=== PATIENT | female | born 1965 | race Caucasian/White ===

== ENCOUNTER 2019-09-21 05:35 | Outpatient (RCR) | payer MEDICARE, MEDICAID, SELFPAY | END 2019-10-11 00:01 | LOC: LAB 05:35 | PROVIDERS: Family Provider Family Medicine; Visit Provider Family Medicine | DX: I10 Essential (primary) hypertension (principal) | CPT/HCPCS: 36415; 80048; 85025 ==

== ENCOUNTER 2019-10-31 09:20 | Outpatient (RCR) | payer MEDICARE, MEDICAID, SELFPAY ==
[2019-10-31 10:23] LABS: Alanine Aminotransferase 20 U/L (0-33); Albumin Level 3.9 g/dL (3.5-5.2); Alkaline Phosphatase 64 IU/L (35-105); Aspartate Amino Transferase 18 U/L (0-32); Globulin 2.9 g/dL (1.3-4.6); Total Bilirubin 0.2 mg/dL (0.15-1.2); Total Protein 6.8 g/dL (6.6-8.7); Valproic Acid Level 72.3 mcg/mL (50-100)
== END 2019-11-11 23:59 | disposition home or self-care (01) ==
LOC: LAB 09:20
PROVIDERS: Family Provider Family Medicine; Visit Provider Family Medicine
DX: J44.9 Chronic obstructive pulmonary disease, unspecified (principal); F20.0 Paranoid schizophrenia
CPT/HCPCS: 80076; 80164

== ENCOUNTER → 2020-11-13 11:12 | Outpatient (BNVA) | payer MEDICARE, MEDICAID, SELFPAY | PROVIDERS: Family Provider Family Medicine; PCP Family Medicine; Referring Provider Family Medicine; Visit Provider Orthopaedic Surgery | DX: M70.62 Trochanteric bursitis, left hip (principal); M25.552 Pain in left hip | CPT/HCPCS: 73502 ==

== ENCOUNTER 2021-05-11 13:10 | Outpatient (CLI) | payer MEDICARE, MEDICAID, SELFPAY ==
[2021-05-11 15:13] LABS: Basophils # 0.1 10^3/uL (0.0-0.1); Basophils % 0.7 %; Eosinophils # 0.2 10^3/uL (0.0-0.8); Eosinophils % 2.1 %; Hematocrit 45.5 % (37.0-47.0); Hemoglobin 15.4 g/dL (11.5-15.3); Lymphocytes # 3.2 10^3/uL (0.8-4.8); Lymphocytes % 30.9 %; Mean Corpuscular HGB Conc 33.8 g/dL (30.0-36.0); Mean Corpuscular Hemoglobin 30.7 pg (28.0-34.0); Mean Corpuscular Volume 90.8 fL (81-99); Mean Platelet Volume 10.2 fL (7.4-10.4); Monocytes # 0.8 10^3/uL (0.2-0.9); Neutrophils % 57.5 %; Nucleated Red Blood Cells % 0 %; Platelet Count 293 10^3/cmm (130-400); Red Blood Count 5.01 10^6/uL (4.1-5.3); Red Cell Distribution Width 11.6 % (12.1-15.1); White Blood Count 10.2 10^3/uL (4.0-10.0)
[2021-05-11 15:23] LABS: Alanine Aminotransferase 44 U/L (0-33); Albumin Level 4.5 g/dL (3.5-5.2); Alkaline Phosphatase 83 IU/L (35-105); Aspartate Amino Transferase 29 U/L (0-32); Blood Urea Nitrogen 2 mg/dL (6-20); Calcium 9.5 mg/dL (8.5-10.5); Carbon Dioxide 25 mmol/L (22-29); Chloride 92 mmol/L (98-107); Chol HDL Ratio 5.59 mg/dL (0.0-4.40); Cholesterol 207 mg/dL (0-200); Free T4 Free Thyroxine 1.03 ng/dL (0.82-1.77); Globulin 2.3 g/dL (1.3-4.6); Glomerular Filtration Rate 126.7 mL/min (90-130); Glucose 117 mg/dL (65-115); HDL Cholesterol 37 mg/dL (60-100); LDL Cholesterol Calculated 134 mg/dL (50-129); LDL HDL Ratio 3.62 RATIO (0.00-3.22); Osmolality Calculated 269 mOsm/kg (285-295); Sodium 131 mmol/L (136-145); Thyroid Stimulating Hormone 1.67 uIU/mL (0.27-4.20); Total Bilirubin 0.2 mg/dL (0.15-1.2); Total Protein 6.8 g/dL (6.6-8.7); Triglycerides 180 mg/dL (0-150)
== END 2021-05-11 13:11 | disposition home or self-care (01) ==
PROVIDERS: PCP Family Medicine; Visit Provider Family Medicine
DX: R19.7 Diarrhea, unspecified (principal)
CPT/HCPCS: 80053; 80061; 84439; 84443

== ENCOUNTER 2025-02-03 12:14 | Outpatient (CLI) | payer MEDICARE, MEDICAID, SELFPAY ==
--- NOTE | 2025-02-03 12:22 | PETR_ITS ---
PROCEDURE INFORMATION: Exam: PET/CT Skull Base to Mid-thigh Exam date and time: 02/03/2025 1:53 PM Age: 59 years old Clinical indication: Condition or disease; Primary cancer: Malignant neoplasm of upper lobe, right bronchus or lung. LABS AND CLINICAL REPORTS: Glucose: 108 mg/dl Treatment strategy for malignancy (PET staging): Initial Staging (PI) TECHNIQUE: Imaging protocol: Following at least four-hour fasting and following the injection of radiopharmaceutical, low dose CT images were obtained. Then, PET images were obtained. Attenuation corrected images were constructed using the CT scan. Fused images of PET and CT were reviewed. The standardized uptake values (SUV) reported below are maximum values within a region of interest, expressed in gm/ml. Exam includes orbital meatal line to mid-thigh. SUV normalization method: BodyWeight Radiopharmaceutical: 10.96 mCi F-18 FDG (Fluorodeoxyglucose), IV. Time of imaging post radiopharmaceutical administration: 45 minutes Injection site: left hand COMPARISON: CR XR hip LT 2-3V wo/w pel* [id number] 11/13/2020 11:18 AM FINDINGS: Brain: Visualized brain has normal physiologic uptake. Salivary glands: Bilateral posteroinferior subcentimeter parotid/periparotid nodules with suggested reniform morphology showing SUV max 8.5 on the right on axial image 26 and SUV max 9.5 on the left on axial image 23. Pharynx: No abnormal uptake. Larynx: No abnormal uptake. Lungs, pleura and trachea: Upper lung predominant emphysematous change. Dependent atelectasis. Posterior right upper lobe mass measures 5.9 x 4.8 cm on axial image 80 and shows mildly irregular margins, central photopenia in keeping with necrosis, and peripheral FDG uptake with SUV max 15.3 at the anterior aspect. Heart: Normal physiologic uptake. Coronary arteries: Moderate coronary artery calcification. Mediastinal space: No abnormal uptake. Diaphragm: Small hiatal hernia. Liver: No abnormal uptake. Gallbladder and biliary ducts: No abnormal uptake. Pancreas: No abnormal uptake. Spleen: No abnormal uptake. Adrenal glands: No abnormal uptake. Kidneys and ureters: Normal physiologic uptake. Stomach and bowel: No abnormal uptake. Reproductive: Nonspecific ugvo-ty-aijziphd FDG uptake at the lower pelvis centered on the periurethral/vaginal region with SUV max 4.8. Vasculature: No abnormal uptake. Mild systemic atherosclerotic calcification without aortic aneurysm. Lymph nodes: No abnormal uptake. No lymphadenopathy in the head, neck, chest, abdomen, pelvis, and extremities. Skeleton: Degenerative change along the spine. Soft tissues: No suspicious abnormal uptake in the visualized head, neck, chest, abdomen, pelvis, and extremities. Moderate fat containing midline ventral upper abdominal wall hernia. METRICS: Mediastinal blood pool: SUV mean 2.4 Liver uptake: SUV mean 2.7 PET/PET skull to thigh INIT [id number] IMPRESSION: 1. FDG avid 5.9 cm posterior right upper lobe mass with central necrosis. 2. Bilateral posteroinferior subcentimeter parotid/periparotid nodules may represent reactive lymph nodes versus neoplasm. 3. Nonspecific mqjv-ml-havrjwiy FDG uptake in the lower pelvis entered on the periurethral/vaginal region may be inflammatory, neoplasm not entirely excluded. 4. Additional chronic and incidental findings as above.
== END 2025-02-03 12:15 | disposition home or self-care (01) ==
PROVIDERS: PCP Family Medicine; Visit Provider Family Medicine
DX: C34.11 Malignant neoplasm of upper lobe, right bronchus or lung (principal); R93.89 Abnormal findings on diagnostic imaging of other specified body structures; J43.9 Emphysema, unspecified; J98.11 Atelectasis; I25.10 Atherosclerotic heart disease of native coronary artery without angina pectoris; K44.9 Diaphragmatic hernia without obstruction or gangrene; I70.90 Unspecified atherosclerosis; M47.9 Spondylosis, unspecified; K43.9 Ventral hernia without obstruction or gangrene
CPT/HCPCS: 78815; A9552

== ENCOUNTER 2025-05-04 09:12 | Oncology outpatient (recurring) (ONCR) | payer MEDICARE, SELFPAY ==
[2025-05-04 10:35] LABS: Hematocrit 40.8 % (36-47); Hemoglobin 13.10 g/dL (11.27-16.99); Mean Corpuscular HGB Conc 32.1 g/dL (30-55); Mean Corpuscular Hemoglobin 27.2 pg (27-33); Mean Corpuscular Volume 84.8 fl (85-98); Nucleated Red Blood Cells % 0 %; Platelet Count 345 10^3/cmm (157-399); Red Blood Count 4.81 10^6/uL (3.85-5.65); White Blood Count 14.23 10^3/uL (3.29-11.43)
[2025-05-04 10:51] LABS: Alanine Aminotransferase 6 U/L (0-33); Albumin Level 3.8 g/dL (3.5-5.2); Alkaline Phosphatase 90 U/L (35-105); Anion Gap 17.7 (5-19); Aspartate Amino Transferase 7 U/L (0-32); Blood Urea Nitrogen 5 mg/dL (8-23); Calcium 9.5 mg/dL (8.5-10.5); Carbon Dioxide 23 mmol/L (22-29); Chloride 100 mmol/L (98-107); Creatinine Clr Calc Pharmacy 137.0340; Globulin 3.3 g/dL (1.3-4.6); Glucose 222 mg/dL (65-115); Osmolality Calculated 288 mOsm/kg (285-295); Potassium 3.7 mmol/L (3.5-5.1); Sodium 137 mmol/L (136-145); Total Protein 7.1 g/dL (6.6-8.7)
[2025-05-04] MEDS: iohexol 350 mg/mL 500 mL Btl (per mL) IV (12:30)
--- NOTE | 2025-05-04 12:30 | CT_ITS ---
WS: [id number] CT NECK WITH CONTRAST HISTORY: non-small cell cancer TECHNIQUE: Contiguous 2 mm axial images are performed through the neck with intravenous contrast. Sagittal and coronal reformats are also submitted. All CT scans at [facility] use at least one of these dose optimization techniques: automated exposure control; mA and/or kV adjustment per patient size (includes targeted exams where dose is matched to clinical indication); or iterative reconstruction. CONTRAST: CONTRAST: Omnipaque 350; 100 mL IV. DLP: 242.82 mGy.cm COMPARISON: PET/CT 02/03/2025 Bilateral intensely enhancing well-circumscribed masses are noted within the tail of each parotid gland. The larger intensely enhancing mass on the LEFT measures 7 x 10 mm. RIGHT parotid moderately enhancing mass 5 x 7 mm. These findings correspond to the recent PET/CT findings. There is an additional intensely enhancing mass measuring 7 x 6 mm just inferior to the RIGHT parotid gland which also was positive on the PET/CT and is probably a lymph node. Small level 2 and level 3 lymph nodes. Small level 5 lymph nodes. Normal appearance of the tongue base. Normal appearance of the torus tubarius and the parapharyngeal fat. Normal epiglottis. Normal thyroid gland. Reidentified is a soft tissue mass in the RIGHT upper lung, posterior described on the recent PET/CT. Mass measures at least 5.6 x 4.8 cm and has increased in size since the PET/CT now extending closer to the mediastinum. RIGHT paratracheal lymph nodes have enlarged. 1 of these lymph nodes is vascular measuring 1.3 cm in diameter. Biapical paraseptal emphysematous changes. Visualized sinuses are clear. No bone destruction. Mastoid air cells are clear. Foraminal stenosis on the RIGHT at C5-6 and C6-7. CT/CT neck w con* [id number] IMPRESSION: 1. Bilateral enhancing masses in the parotid tails. Correspond to the masses s een on the recent PET/CT. There is an additional lymph node that is hypervascul ar on the RIGHT adjacent to the tail of the parotid gland. Parotid space masses have overlapping features between malignancy and benign tumors. These may be b enign or malignant tumors. Consider Warthin's tumor, benign mixed tumors or met astatic disease or primary pituitary neoplasms. Positive lymph node adjacent to the RIGHT parotid tail may be inflammatory or neoplastic. 2. Neoplastic lung mass described on the PET/CT in the RIGHT upper lobe is inc reasing in size. Mass extends towards the mediastinum and there is a hypervascu lar RIGHT paratracheal lymph node. Several RIGHT paratracheal lymph nodes have increased in size since the PET/CT of 02/03/2025.
== END 2025-05-11 23:59 | disposition home or self-care (01) ==
PROVIDERS: PCP Family Medicine; Visit Provider Internal Medicine
DX: C34.91 Malignant neoplasm of unspecified part of right bronchus or lung (principal); R93.89 Abnormal findings on diagnostic imaging of other specified body structures; R91.8 Other nonspecific abnormal finding of lung field; J43.8 Other emphysema; M48.02 Spinal stenosis, cervical region; F17.210 Nicotine dependence, cigarettes, uncomplicated
CPT/HCPCS: 36415; 70491; 80053; 83615; 85025; 99204

== ENCOUNTER 2025-05-14 20:38 | Emergency (ER) | payer MEDICARE, SELFPAY ==
--- OUTSIDE RECORDS SUMMARY | 2014-07-24 19:00 | XMS_ITS | Continuity of Care Document ---
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 No Information Carltonmelodie Aj. [address] [place] [address], [id number]. tel:[phone] Family History Family Member Type Diagnosis Age At Onset No Information Payers Payer name Insurance type Covered green party ID Authoriza tion(s) No Information Social History Type Description Quantity Date Captured Comments Sex Female Smoking Status No Information Chief Complaint And Reason For Visit No Information Reason For Referral Reason For Referral No Information History Of Present Illness Encounter Date Complaint History Of Prese nt Illness No Information Functional Status Date Functional Assessmen t No Information Instructions Date Instruction Additional Infor mation No Information Assessments Type Assessment Date No Information Patient Care Teams Name Effective Dates (start - stop) Status Members No Information
--- OUTSIDE RECORDS SUMMARY | 2025-04-21 05:00 | XMS_ITS | Continuity of Care Document ---
Author Organization [address] [place] [address] Address [address] [facility] [address] [place] [address] Phone Care Team Providers Care Livestock Handler Name Role Phone Juvenalfadumo Nitin SHARP Unavailable Unavailable Allergies, Adverse Reactions, Alerts Substance Reaction Status Criticality amoxicillin Active No Information paliperidone Active No Information Medications Medication Instructions Dosage Effective Dates (start - stop) Status Comments Breztri Aerosphere 160 mcg-9mcg-4.8mcg/actuation HFA aerosol inhaler - Active famotidine 20 mg tablet - Ac tive escitalopram 5 mg tablet - A ctive solifenacin 10 mg tablet - A ctive clozapine 100 mg tablet - Ac tive ipratropium 0.5 mg-albuterol 3 mg (2.5 mg base)/3 mL nebulization soln - Active doxycycline hyclate 100 mg tablet - Active Symbicort 80 mcg-4.5 mcg/actuation HFA aerosol inhaler - Active budesonide-formoterol HFA 80 mcg-4.5 mcg/actuation aerosol inhaler - Active hydrocodone 5 mg-acetaminophen 325 mg tablet - Active olanzapine 5 mg tablet - Act erna rosuvastatin 10 mg tablet - Active cephalexin 500 mg capsule - Active fluphenazine decanoate 25 mg/mL injection solution - Active lamotrigine 25 mg tablet - A ctive olanzapine 10 mg disintegrating tablet - Active olanzapine 2.5 mg tablet - A ctive amlodipine 5 mg tablet - Act erna citalopram 20 mg tablet - Ac tive olanzapine 20 mg tablet - Ac tive olanzapine 15 mg tablet - Ac tive Ventolin HFA 90 mcg/actuation aerosol inhaler - Active olanzapine 10 mg tablet - Ac tive benztropine 0.5 mg tablet - Active divalproex 250 mg tablet,delayed release - Active divalproex 500 mg tablet,delayed release - Active fluticasone propionate 50 mcg/actuation nasal spray,suspension - Active divalproex ER 500 mg tablet,extended release 24 hr - Active Procedures Procedure Date Complete Denture-Maxillary Complete Denture-Mandibular Unspec Remvbl Prosth Proc, By Report Apr Unspec Remvbl Prosth Proc, By Report Apr Try In Bite Registration House/Extended Care Facility Call Denture Impression DEBRIDE NAIL 6 OR MORE 1ST NF CARE SF/LOW MDM 25 Compsve Oral Eval- New/Est Pat Complete Series Of Radiographic Images N COMPRE OPH EXAM EST PT 1/> Vision svcs frames purchases Lens spher bifoc plano 4.00d EYE EXAM NEW PATIENT Advance Directives Directive Yes / No Effective Date File Name No Information Encounters Encounter Description Practice Location Reason(s) For Visit Diagnoses Date Provider Providers Copied on Encounter [address] [place] [address], [address] [facility] [address], [place], [place], [id number], [place] tel:[phone] [place] [address] Complete loss of teeth, unspecified cause, unspecified classPresence of dental prosthetic device (complete) (partial) 5 WILEY Garrido. Referring Provider: Min Vidal. [address] [place] [address], [place], [place], [id number], tel:[phone] [place] [address] No Information 5 WILEY Mack. [address] [place] [address], [place], [place], [id number], tel:[phone] [place] [address] Complete loss of teeth, unspecified cause, unspecified class 5 WILEY Garrido. Referring Provider: Min Vidal. [address] [place] [address], [place], [place], [id number], [place] tel:[phone] [place] [address] Complete loss of teeth, unspecified cause, unspecified class 5 WILEY Garrido. Referring Provider: Min Vidal. [address] [place] [address], [place], [place], [id number], [place] tel:[phone] [place] [address] Encounter for dental examination and cleaning without abnormal findingsCompl ete loss of teeth, unspecified cause, unspecified class 4 WILEY Eubanks. Referring Provider: Min Vidal. [address] [place] [address] SF/LOW MDM [address] [place] [address], [place], [place], [id number], [place] tel:[phone] [place] [address] Tinea unguiumPeriph eral vascular disease, unspecified 4 WILEY Dukes. Referring Provider: Min Vidal. [address] [place] [address], [place], [place], [id number], [place] tel:[phone] [place] [address] Encounter for dental examination and cleaning without abnormal findings 4 Ableino Gee. , MD. Referring Provider: Min Vidal. [address] [place] [address], [address] [facility], [place], [place], [id number], tel:[phone] [facility] Decreased vision (chief complaint) Age-related nuclear cataract, bilateral 4 Angel Cherry. [address] [facility], [address], [place], [place], [id number], [place]. tel:[phone] [place] [address], [address] [address], [place], [place], [id number], [place] tel:[phone] [facility] Presbyopia 3 Angel Cherry. [address] [facility], [address], [place], [place], [id number], [place]. tel:[phone] [place] [address], [address] [facility] [address], [place], [place], [id number], tel:[phone] [place] [address] Decreased vision (chief complaint) Age-related nuclear cataract, bilateral 3 Angel Cherry. [address] [facility], [address], [place], [place], [id number], [place]. tel:[phone] Referring Provider: Min Vidal. [address] [place] [address], [address] [address], [place], [place], [id number], tel:[phone] [place] [address] No Information 3 Charly Sarah. [address], [place], [place], [id number], [place]. tel:[phone] Family History Family Member Type Diagnosis Age At Onset No Information Payers Payer name Insurance type Covered republican ID Jenniffer dunn(s) DDS Medicaid [facility] [id number] Social History Type Description Quantity Date Captured Comments Sex Female Smoking Status No Information Chief Complaint And Reason For Visit No Information Reason For Referral Reason For Referral No Information Plan Of Treatment Date Type Action Status Appointment Nisha Garcia BOOKED Appointment Nisha Garcia BOOKED Appointment [facility] Nisha BOOKED History Of Present Illness Encounter Date Complaint History Of Prese nt Illness Decreased vision The 58 year old patient presents for evaluation of Decreased vision in the right eye and left eye. It occurs all the time. It affects both near and far vision. The condition is mild. Patient denies: eye pain. Decreased vision The 58 year old patient presents for evaluation of Decreased vision in the right eye and left eye. It occurs all the time. It affects near vision. The condition is moderate. Patient denies: eye pain. Functional Status Date Functional Assessmen t No Information Instructions Date Instruction Additional Infor mation This is a chronic stable problem . Related to Peripheral vascular disease, unspecified All documented thick ened nails were debrided using a rotary tool and nail nipper. Related to Tinea unguium We will schedule a f ollow up appointment in 6-9 months for a dilated fundus exam. Related to Age-related nuclear cataract, bilateral Impression/Plan - Ca taracts are moderate and are affecting visual acuity; however, no treatment recommended at this time. We will monitor for progression. Related to Age-related nuclear cataract, bilateral Follow up - We will schedule a follow up appointment in 6-9 months for a dilated fundus exam. Related to Age-related nuclear cataract, bilateral [facility] order will be sent to insurance for review. We will schedule a follow up appointment in 6-9 months for a dilated fundus exam. Related to Age-related nuclear cataract, bilateral Follow up - At the [facility], glasses order will be sent to insurance for review. We will schedule a follow up appointment in 6-9 months for a dilated fundus exam. Related to Age-related nuclear cataract, bilateral Impression/Plan - Ca taracts are moderate and are affecting visual acuity; however, no treatment recommended at this time. We will monitor for progression. Related to Age-related nuclear cataract, bilateral Assessments Type Assessment Date No Information Patient Care Teams Name Effective Dates (start - stop) Status Members No Information
[2025-05-14 20:39] VITALS: BP 91/72; PULSE 98; RESP 18; TEMP 36.8; O2SAT 90; BMI 34.8
--- NOTE | 2025-05-14 20:42 | CTR_ITS ---
PROCEDURE INFORMATION: Exam: CT Head Without Contrast Exam date and time: 05/14/2025 8:41 PM Age: 60 years old Clinical indication: Stroke-like symptoms; Other: Seizure activity; RT upper extremity weakness; Additional info: Per EMS patient had convulsion like activity and PT C/O RT upper ext weakness. Last known well time of 1840 hours. History of non small cell lung cancer. TECHNIQUE: Imaging protocol: Computed tomography of the head without contrast. Radiation optimization: All CT scans at this facility use at least one of these dose optimization techniques: automated exposure control; mA and/or kV adjustment per patient size (includes targeted exams where dose is matched to clinical indication); or iterative reconstruction. Other technique: STROKE PROTOCOL was implemented. COMPARISON: CT neck w con* [id number] 05/04/2025 12:25 PM RADIATION DOSE METRICS: Total DLP (mGy-cm): 2194.98 FINDINGS: Brain: 1.6 x 1.5 x 1.5 cm mass within the superior left frontal lobe with associated local vasogenic edema (see for example series 18, image 63 and series 21, image 11). No intracranial hemorrhage. There is global parenchymal volume loss. Additional periventricular white matter hypoattenuation is nonspecific but most likely due to small vessel disease. No evidence of acute territorial infarct or cerebral edema. No midline shift. Cerebral ventricles: Prominent ventricles likely secondary to volume loss. Paranasal sinuses: Visualized paranasal sinuses are clear. Mastoid air cells: The mastoid air cells are clear. Bones: The calvarium is intact. Small calcified osteoma along the right lamina papyracea/medial orbital wall. Soft tissues: Unremarkable. CT/CT head thrombolytic [id number] IMPRESSION: 1. Left superior frontal 1.6 cm mass with associated local vasogenic edema, suspicious for and intracranial metastasis given history of lung cancer. Recommend further assessment with contrast enhanced MRI to assess for additional smaller lesions. 2. No findings to suggest acute ischemia. ASSESSMENT: ASPECTS ([place] Stroke Program Early CT Score) is 10.
--- NOTE | 2025-05-14 20:46 | W.ED.SEIZURE ---
HPI - Seizure General: Chief Complaint: Neuro Symptoms/Deficit Stated Complaint: stroke alert Time Seen by Provider: 05/14/25 20:43 History of Present Illness: HPI Narrative: 60-year-old female brought in via EMS with concerns for CVA. Patient was in a lockdown center for behavior when she had approximately 8 to 10-minute episode of seizure-like activity. After she came out of it she had some right arm weakness. Weakness is almost resolved prior to arrival via EMS. Patient has no seizure history. She is on a lockdown unit and does not have access to alcohol or drugs. Patient with no complaints upon arrival. NIH is 0. Associated symptoms: Deny chest pain, chills or fever(s) Related Data Home Medications ?Medication ?Instructions ?Recorded ?Confirmed donepezil 10 mg tablet 10 mg PO DAILY 11/13/20 11/13/20 tamsulosin 0.4 mg capsule 0.4 mg PO DAILY 11/13/20 11/13/20 acetaminophen 650 mg 650 mg PO Q12H 05/04/25 05/04/25 tablet,extended release aluminum-mag hydroxide-simethicone 10 ml PO QID PRN 05/04/25 05/04/25 200 mg-200 mg-20 mg/5 mL oral susp (Michell-Lanta) budesonide 160 mcg-glycopyr 9 2 inh inhalation BID 05/04/25 05/04/25 mcg-formot 4.8 mcg/actuation HFA inhaler (Breztri Aerosphere) clozapine 100 mg tablet mg PO 05/04/25 05/04/25 cyanocobalamin (vitamin B-12) 500 500 mcg PO DAILY 05/04/25 05/04/25 mcg lozenges escitalopram oxalate 10 mg tablet mg PO 05/04/25 05/04/25 famotidine 20 mg tablet mg PO 05/04/25 05/04/25 fluphenazine decanoate 25 mg/mL mg IM 05/04/25 05/04/25 injection solution fluticasone propionate 50 intranasal 05/04/25 05/04/25 mcg/actuation nasal spray,suspension naloxone 1 mg/mL injection syringe 1 mg IM Q2M PRN 05/04/25 05/04/25 solifenacin 10 mg tablet mg PO 05/04/25 05/04/25 Allergies Allergy/AdvReac Type Severity Reaction Status Date / Time amoxicillin Allergy Unknown unknown Verified 05/04/25 09:20 paliperidone (From Invega) Allergy Unknown unknown Verified 05/04/25 09:20 petrolatum,white (From A and Allergy Unknown Unknown Verified 05/04/25 09:20 D Barrier) Review of Systems Const: Denies: fever(s) or chills Card: Denies: chest pain or palpitations Resp: Denies: dyspnea or productive cough Neuro: Reports: seizure-like activity and other (Please see HPI) PFSH ED PFSH: Social History Smoking and tobacco/nicotine status: current some day tobacco/nicotine user (vaping and cigs) Alcohol intake: never Substance/Drug Use: never Current gender identity: Female Physical Exam Const: COMMON NORMALS: no acute distress and alert Neuro: COMMON NORMALS: moves all extremities, no focal motor deficits and no sensory deficits noted SENSORIUM/ORIENTATION: Yes alert SPEECH: speech normal OTHER: NIH 0 Psych: COMMON NORMALS: mental status grossly normal, Normal thought process present and cooperative THOUGHT PROCESS: Normal thought process present Course Vital Signs: Vital signs: Vital Signs Temperature 98.3 F 05/14/25 20:39 Pulse Rate 100 05/14/25 21:20 Respiratory Rate 18 05/14/25 21:20 Blood Pressure 91/51 05/14/25 21:20 Pulse Oximetry 90 05/14/25 21:20 Oxygen Delivery Me thod Room Air 05/14/25 20:39 MDM - Seizure MDM Narrative Medical decision making narrative: Patient's CT was ordered and reviewed. Patient has a 1.6 x 1.5 x 1.5 cm mass in the brain that is consistent with likely metastatic small cell lung cancer. Patient with new onset seizure and some vasogenic edema on CT. Patient was given dexamethasone Keppra and IV fluids in the ER. Patient [facility] be [facility] to [facility] following recommendations of neurology and hospitalist. Dr. Minor accepting. She will be transferred via EMS. She was stable upon transfer. Lab Data 05/14/25 21:46 05/14/25 21:46 Labs: Radiology Impressions Head CT 05/14/25 20:42 IMPRESSION: 1. Left superior frontal 1.6 cm mass with associated local vasogenic edema, suspicious for and intracranial metastasis given history of lung cancer. Recommend further assessment with contrast enhanced MRI to assess for additional smaller lesions. 2. No findings to suggest acute ischemia. ASSESSMENT: ASPECTS (Carly Stroke Program Early CT Score) is 10. ADDENDUM: 05/14/252109 COMMENT: THIS REPORT CONTAINS FINDINGS THAT MAY BE CRITICAL TO PATIENT CARE. The exam findings were verbally communicated by me to Dr. Deleon via telephone conference at 9:07 PM CDT on 05/14/2025. The findings were acknowledged and understood. Laboratory Results WBC 13.17 10^3/uL (3.29-11.43) H 05/14/25 21:46 RBC 4.77 10^6/uL (3.85-5.65) 05/14/25 21:46 Hgb 13.10 g/dL (11.27-16.99) 05/14/25 21:46 Hct 39.6 % (36-47) 05/14/25 21:46 MCV 83.0 fl (85-98) L 05/14/25 21:46 MCH 27.5 pg (27-33) 05/14/25 21:46 MCHC 33.1 g/dL (30-55) 05/14/25 21:46 RDW 13.6 % (12.1-15.1) 05/14/25 21:46 Plt Count 353 10^3/cmm (157-399) 05/14/25 21:46 MPV 9.2 fL (7.4-10.4) 05/14/25 21:46 Neut % (Auto) 72.6 % 05/14/25 21:46 Lymph % (Auto) 17.5 % 05/14/25 21:46 [place] % (Auto) 6.8 % 05/14/25 21:46 Eos % (Auto) 1.8 % 05/14/25 21:46 Baso % (Auto) 0.5 % 05/14/25 21:46 Neut # (Auto) 9.55 10^3/uL (1.8-7.7) H 05/14/25 21:46 Lymph # (Auto) 2.3 10^3/uL (0.8-4.8) 05/14/25 21:46 [place] # (Auto) 0.9 10^3/uL (0.2-0.9) 05/14/25 21:46 Eos # (Auto) 0.2 10^3/uL (0.0-0.8) 05/14/25 21:46 Baso # (Auto) 0.1 10^3/uL (0.0-0.1) 05/14/25 21:46 Nucleated RBC % (auto) 0 % 05/14/25 21:46 Nucleated RBCs # 0.0 /100WBC 05/14/25 21:46 PT 12.60 SECONDS (12.1-14.9) 05/14/25 21:46 INR 0.88 (0.8-1.2) 05/14/25 21:46 APTT 32.5 SECONDS (23.9-36.7) 05/14/25 21:46 Sodium 142 mmol/L (136-145) 05/14/25 21:46 Potassium 4.0 mmol/L (3.5-5.1) 05/14/25 21:46 Chloride 104 mmol/L (98-107) 05/14/25 21:46 Carbon Dioxide 26 mmol/L (22-29) 05/14/25 21:46 Anion Gap 16.0 (5-19) 05/14/25 21:46 BUN 6 mg/dL (8-23) L 05/14/25 21:46 Creatinine 0.5 mg/dL (0.5-0.9) 05/14/25 21:46 GFR Calculation 125.0 mL/min (90-130) 05/14/25 21:46 Glucose 142 mg/dL (65-115) H 05/14/25 21:46 POC Glucose 154 mg/dL (70-110) H 05/14/25 20:45 Calculated Osmolality 294 mOsm/kg (285-295) 05/14/25 21:46 Calcium 9.5 mg/dL (8.5-10.5) 05/14/25 21:46 Total Bilirubin 0.2 mg/dL (0.15-1.2) 05/14/25 21:46 AST 8 U/L (0-32) 05/14/25 21:46 ALT 9 U/L (0-33) 05/14/25 21:46 Alkaline Phosphatase 90 U/L (35-105) 05/14/25 21:46 Total Protein 6.7 g/dL (6.6-8.7) 05/14/25 21:46 Albumin 3.7 g/dL (3.5-5.2) 05/14/25 21:46 Globulin 3.0 g/dL (1.3-4.6) 05/14/25 21:46 All radiology interpretation(s) finalized by discharge Discharge Plan Discharge Patient Disposition: Xfer Short-Term Hosp 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
--- OUTSIDE RECORDS SUMMARY | 2025-05-14 20:59 | XMS_ITS | Clinical Summary ---
Author Organization [facility] Ezio Argueta do Address [address] [place] [address] EZIO HULL [facility] [place] [address] Care Team Providers Care Heating Equipment Repairer Name Role Phone Unavailable Primary Care Provider Unavailabl e Allergies Active Allergy Reactions Criticality Noted Date Comments Amoxicillin Unknown 04/05/2013 Medications venlafaxine SR 24 hour (EFFEXOR XR) 150 mg Oral capsule daily. 10/28/2012 Active vitamin E 600 unit Oral Cap daily at bedtime. 10/28/2012 Active vitamin E 1,000 unit Oral Cap daily before breakfast. 10/28/2012 Active 0mega-3 fatty acids-vitamin E (FISH OIL) 1,000 mg Oral Cap 1,000 mg daily. 10/28/2012 Active ranitidine (ZANTAC) 150 mg Oral tablet daily. 10/28/2012 Active LORazepam (ATIVAN) 0.5 mg Oral tablet 1 Tab 2 times daily as needed. 10/28/2012 Active fluphenazine (PROLIXIN) 10 mg Oral tablet Take 10 mg by mouth 2 times daily. Active PNV with Ca,No.73-Iron-FA (TRINATE) 28-1 mg Oral Tab Take by mouth. Active VESICARE 5 mg Tablet GIVE 1 TABLET BY MOUTH DAILY. 30 Tab 3 09/06/2013 Active divalproex delayed release (DEPAKOTE) 500 mg Tablet, Delayed Release (E.C.) Take 500 mg by mouth daily. Active SIMETHICONE ORAL Take by mouth 1 time daily as needed. Active OLANZapine (ZYPREXA ZYDIS) 10 mg Tablet, Rapid Dissolve Place 10 mg inside cheek daily at bedtime. Active ibuprofen (MOTRIN) 200 mg tablet Take 200 mg by mouth every 6 hours as needed. Active divalproex delayed release (DEPAKOTE) 500 mg Tablet, Delayed Release (E.C.) Take 1,000 mg by mouth daily at bedtime. Active OLANZapine (ZYPREXA ZYDIS) 20 mg Tablet, Rapid Dissolve Place 20 mg inside cheek daily. At 6 pm Active FLUPHENAZINE HCL (PROLIXIN ORAL) Take 7.5 mg by mouth. 3cc IM every 2 weeks Active benztropine (COGENTIN) 0.5 mg tablet Take 0.5 mg by mouth 2 times daily. Active Hospital, Clinic, or Other Facility Administered Medication Ordered Dose Route Frequency Start Date End Date Status paliperidone palmitate (INVEGA SUSTENNA) 234 mg/1.5 mL injection 234 mgIndications:Schizoaffecti ve disorder, chronic condition ([facility]) 234 mg IM EVERY MONTH 07/07/2013 Acti ve Active Problems Problem Noted Date Diagnosed Date Bursitis of left hip 01/01/2021 Cigarette dependence 03/21/2019 COPD (chronic obstructive pulmonary disease) 05/2018 Schizoaffective disorder, bipolar type Paranoid schizophrenia, subchronic condition 05/2018 Urinary frequency 10/28/2012 Mixed hyperlipidemia 08/04/2012 Allergic rhinitis, cause unspecified 10/28/2011 Schizoaffective disorder, chronic condition 10/12 Tobacco use disorder 09/02/2011 Encounters Date Type Department Care Team Description 04/26/2025 External Device Data [facility] ABSTRACTION Provider, Abstract 04/25/2025 External Device Data [facility] ABSTRACTION Provider, Abstract 03/02/2025 External Device Data [facility] ABSTRACTION Provider, Abstract 03/01/2025 External Device Data [facility] ABSTRACTION Provider, Abstract 03/01/2025 External Device Data [facility] ABSTRACTION Provider, Abstract 02/28/2025 External Device Data [facility] ABSTRACTION Provider, Abstract from Last 3 Months Immunizations Immunization Administration Dates Next Due Influenza Vaccine Split 3+ Yrs IM 07/13/2013 Social History Tobacco Use Types Packs/Day Years Used Date Smoking Tobacco: Every Day Cigarettes Smokeless Tobacco: Never Alcohol Use Standard Drinks/Week Comments No 0 (1 standard drink = 0.6 oz pur e alcohol) Comments Unknown Sex and Gender Information Value Date Recorded Sex Assigned at Not on file Legal Sex 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 Gender Identity Not on file Sexual Orientation Not on file Occupation Industry Job Start Date Job End Date Not on file Not on file Not on file Not on file Last Filed Vital Signs Vital Sign Reading Time Taken Comments Blood Pressure 116/68 05/21/2021 12:23 PM CDT Pulse 83 05/21/2021 12:23 PM CDT Temperature 36.7 C (98.1 F) 05/21/2021 12:23 PM CDT Respiratory Rate 21 05/21/2021 12:23 PM CDT Oxygen Saturation 95% 12/22/2013 9:54 AM CDT Inhaled Oxygen Concentration - - Weight 102.5 kg (226 lb) 05/21/2021 12:23 PM CDT Height 170.2 cm (5' 7 ) 05/21/2021 12:23 PM CDT Body Mass Index 35.4 05/21/2021 12:23 PM CDT Plan of Treatment Health Maintenance Due Date Last Done Comments HPV/Cotest (21-29) 1984 HPV/Cotest (30-65) 1993 DTAP/TDAP/TD VACCINES (1 - Tdap) 07/20/2002 07/19/20 02 FIT-DNA Q 3 years 2008 FIT/FOBT Q 1 year 2008 Flex Sig/CT Colonography Q 5 years 2008 ZOSTER VACCINE (1 of 2) 2013 BREAST CANCER SCREENING 01/27/2016 01/27/20 15, 01/26/2015, 04/25/2013 CERVICAL CANCER SCREENING 04/20/2016 PAP SMEAR 04/20/2016 04/20/2013 RSV VACCINE (60+ or ) (1 - Risk 60-74 years 1-dose series) 2023 INFLUENZA VACCINE (#1) 2025 07/01/2017, 2012 COLORECTAL SCREENING 02/20/2028 02/19/2018 Colorectal Cancer Screening 02/20/2028 Insurance MEDICAID [place] MED[place]ARE PART A AND B
--- OUTSIDE RECORDS SUMMARY | 2025-05-14 20:59 | XMS_ITS | Encounter Summary ---
Author Organization [facility] Address [address] [address] Care Team Providers Care Loom Fixer Supervisor Name Role Phone Min Vidal MD Primary Care Provider Encounter Details Date Type Department Care Team (Late st Contact Info) Description 02/07/2025 Orders Only [facility] - Primary Care [address] [place] [address] Mni Vidal MD [address] [place] [address] Social History Tobacco Use Types Packs/Day Years Used Date Smoking Tobacco: Never Smokeless Tobacco: Never Alcohol Use Standard Drinks/Week Comments Defer 0 (1 standard drink = 0.6 oz pur e alcohol) PHQ-2 Answer Date Recorded PHQ-2 Score 0 10/31/2024 Comments Unknown Sex and Gender Information Value Date Recorded Sex Assigned at Not on file Legal Sex Female 8:13 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 Gender Identity Not on file Sexual Orientation Not on file documented as of this encounter Plan of Treatment Not on file documented as of this encounter Procedures Procedure Name Priority Date/Time Associated Diagnosis Comments CT CHEST WO CONTRAST Routine 02/07/2025 3:38 PM CDT documented in this encounter Results * CT Chest withOUT contrast (02/07/2025 3:38 PM CDT) Anatomical Region Laterality Modality Chest Computed Tomogra phy Min Vidal MD IMG CT ORDERABLES Kathleen l Result documented in this encounter Visit Diagnoses Not on filedocumented in this encounter Additional Health Concerns Assessment Noted Time PHQ-9 Depression Total Score: 0 10/31/19 25 1:24 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 A fall risk assessment has been complete d for the patient 01/30/2025 6:11 AM CDT documented as of this encounter Care Teams Loom Fixer Supervisor Relationship Specialty Start Date End Date Min Vidal MD [address] [place] [address] PCP - General Family Medicine 09/09/22 documented as of this encounter
--- OUTSIDE RECORDS SUMMARY | 2025-05-14 20:59 | XMS_ITS | Clinical Summary ---
Author Organization [facility] Address [address] [place] [address] Care Team Providers Care In Home Baby Sitter Name Role Phone Min Vidal MD Primary Care Provider Allergies Active Allergy Reactions Criticality Noted Date Comments Amoxicillin Unknown 09/22/2022 Paliperidone Unknown 09/22/2022 Medications HYDROcodone-antoinette taminophen (NORCO) 5-325 mg per tabletIndicatio ns:Pain Take 1 tablet by mouth in the morning and 1 tablet in the evening. Max Daily Amount: 2 tablets. 60 tablet 07/07/2023 Active amLODIPine (NORVASC) 5 MG tablet 12/08/2023 Active eszopiclone (LUNESTA) 1 MG tablet 12/08/2023 Active fluPHENAZine decanoate (PROLIXIN) 25 mg/mL depo injection Inject into the shoulder, thigh, or buttocks every 14 (fourteen) days. Active naloxone 2 mg/2 mL syringe kit Inject as directed. Active budesonide-form oteroL (SYMBICORT) 80-4.5 mcg/actuation inhaler Inhale 2 puffs in the morning and 2 puffs in the evening. 01/05/2024 Active cloZAPine (CLOZARIL) 100 MG tablet Take 100 mg by mouth nightly. 01/05/2024 Active doxycycline (VIBRA-TABS) 100 MG tablet Take 100 mg by mouth in the morning and 100 mg in the evening. 01/05/2024 Active LORazepam (ATIVAN) 2 mg tablet Take 2 mg by mouth nightly as needed. 12/15/2023 Active cyanocobalamin, vitamin B12, 500 MCG tablet Take 500 mcg by mouth in the morning. Active guaifenesin (CALVIN-TUSSIN ORAL) Take by mouth. Active clonazePAM (KLONOPIN) 0.5 MG tablet Take 0.5 mg by mouth as needed in the morning and 0.5 mg as needed in the evening. Active nicotine (NICODERM CQ) 21 mg/[address] 1 patch on the skin in the morning. Active Active Problems Problem Noted Date Diagnosed Date Mass of upper lobe of right lung 02/02/2025 Chronic rhinitis 11/25/2024 Gastro-esophageal reflux disease without esophag itis 08/05/2024 Smoker 08/05/2024 Slow transit constipation 08/05/2024 Overactive bladder 02/05/2024 Schizoaffective disorder, bipolar type Assessment & Plan (01/11/2024 3:28 PM CDT): Continue current medications. Keep follow-up with Psychiatry. 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 Chronic pain syndrome 04/01/2023 Primary hypertension 03/10/2023 Panlobular emphysema 11/29/2022 Type 2 diabetes mellitus wit hout complication, without long-term current use of insulin 11/08/2022 Body mass index (BMI) of 36.0-36.9 in adult 10/13 Tubular adenoma of colon 03/03/2018 Resolved Problems Problem Noted Date Diagnosed Date Resolved Date Hypercholesterolemia 11/08/2022 024 Overview (11/08/2022): START CRESTOR 10 MG AT BEDTIME Tubulovillous adenoma of rectum 03/03/2018 08/05/2024 Encounters Date Type Department Care Team Description 03/17/2025 12:30 PM CDT Office Visit [facility] - Primary Care [address] [place] [address] Sofía Bone PA Encounter for Medicare annual wellness exam (Primary Dx) 03/16/2025 Travel from Last 3 Months Immunizations Immunization Administration Dates Next Due Hep B, unspecified 07/08/1999 Gabriella Sars-CoV-2 Vaccination 06/14/2021 Td (adult) (TDVAX) 07/19/2002 Tdap (BOOSTRIX, ADACEL) 02/20/2009 influenza, injectable, quadr ivalent, preservative free (AFLURIA/FLUARIX/FLULAVAL/FLUZONE) 08/04/2022 influenza, split (incl. 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 Gender Identity Not on file Sexual Orientation Not on file Last Filed Vital Signs Vital Sign Reading Time Taken Comments Blood Pressure 122/74 04/24/2025 8:30 AM CDT Pulse 80 04/24/2025 8:30 AM CDT Temperature 36.7 C (98 F) 04/24/2025 8:30 AM CDT Respiratory Rate 16 04/24/2025 8:30 AM CDT Oxygen Saturation 94% 04/24/2025 8:30 AM CDT Inhaled Oxygen Concentration - - Weight 97.5 kg (215 lb) 04/24/2025 8:30 AM CDT Height 162.6 cm (5' 4 ) 04/24/2025 8:30 AM CDT Body Mass Index 36.9 04/24/2025 8:30 AM CDT Plan of Treatment Health Maintenance Due Date Last Done Comments Foot Exam 1965 Hemoglobin A1C 1963 Ophthalmology Exam 1973 Urine Microalbumin 1973 Pneumococcal Vaccine: 50+ Years (1 of 2 - PCV) 1982 Pap Smear 1984 Hepatitis B Vaccines (2 of 3 - 19+ 3-dose series) 08/05/1999 07/08/1999 Mammogram 2003 Colonoscopy 2008 Shingrix (ZOSTER RECOMBINANT ) (1 of 2) 2013 Td, Tdap Vaccines Adult 02/20/2019 02/21/20 09, 07/19/2002 RSV 60+ (1 - Risk 60-74 year s 1-dose series) 2023 COVID-19 Vaccine (2 - 2023-2 5 season) 2024 06/14/2021 Influenza Vaccination (#1) 05/12/202508/04, 07/11/2009 Medicare Annual Wellness 03/17/2026 03/17/2025 HIB Vaccines Aged Out No longer eligi ble based on patient's age to complete this topic HPV Vaccines Aged Out No longer eligi ble based on patient's age to complete this topic Hepatitis A Vaccines Aged Out No long er eligible based on patient's age to complete this topic IPV Vaccines Aged Out No longer eligi ble based on patient's age to complete this topic Meningococcal Vaccines Aged Out No lo nger eligible based on patient's age to complete this topic RSV Mab Nirsevimab (Beyfortu s) <20 months Aged Out No longer eligible b ased on patient's age to complete this topic Rotavirus Vaccines Aged Out No longer eligible based on patient's age to complete this topic Insurance MEDICARE Care Teams In Home Baby Sitter Relationship Specialty Start Date End Date Min Vidal MD [address] [place] [address] PCP - General Family Medicine 09/09/22
--- NOTE | 2025-05-14 21:10 | ECG_ITS ---
[facility] Pat Name: Nisha Garcia Department: Room: Gender: Female Guncotton Packer: : [id number] Requested By: Bobby England Order Number: [id number] Reading MD: ANIA HARMON Measurements Intervals [place] Rate: 97 P: 63 RI: 189 QRS: 24 QRSD: 90 T: 51 QT: 358 QTc: 456 Interpretive Statements SINUS RHYTHM No previous ECG available for comparison Electronically Signed On 05-15-2025 13:55:51 CDT by ANIA HARMON [email or web address]
[2025-05-14 21:20] VITALS: BP 91/51; PULSE 100; RESP 18; O2SAT 90
[2025-05-14 21:51] LABS: Hematocrit 39.6 % (36-47); Hemoglobin 13.10 g/dL (11.27-16.99); Mean Corpuscular HGB Conc 33.1 g/dL (30-55); Mean Corpuscular Hemoglobin 27.5 pg (27-33); Mean Corpuscular Volume 83.0 fl (85-98); Nucleated Red Blood Cells % 0 %; Platelet Count 353 10^3/cmm (157-399); Red Blood Count 4.77 10^6/uL (3.85-5.65); White Blood Count 13.17 10^3/uL (3.29-11.43)
[2025-05-14 22:01] LABS: INR 0.88 (0.8-1.2); Prothrombin Time 12.60 SECONDS (12.1-14.9)
[2025-05-14 22:02] LABS: Partial Thromboplastin Time 32.5 SECONDS (23.9-36.7)
[2025-05-14 22:10] LABS: Alanine Aminotransferase 9 U/L (0-33); Albumin Level 3.7 g/dL (3.5-5.2); Alkaline Phosphatase 90 U/L (35-105); Anion Gap 16.0 (5-19); Aspartate Amino Transferase 8 U/L (0-32); Blood Urea Nitrogen 6 mg/dL (8-23); Calcium 9.5 mg/dL (8.5-10.5); Carbon Dioxide 26 mmol/L (22-29); Chloride 104 mmol/L (98-107); Creatinine Clr Calc Pharmacy 137.7022; Globulin 3.0 g/dL (1.3-4.6); Glucose 142 mg/dL (65-115); Osmolality Calculated 294 mOsm/kg (285-295); Potassium 4.0 mmol/L (3.5-5.1); Sodium 142 mmol/L (136-145); Total Protein 6.7 g/dL (6.6-8.7)
--- NOTE | 2025-05-14 22:17 | PC.NURSE ---
General acute hospital was notified of pt's transfer to [facility] in [place]. Spoke with charge nurse Evi.
[2025-05-14] MEDS: levETIRAcetam 2,000 MG/200 ML PREMIX 400 MG IV (22:43)
[2025-05-14 22:55] VITALS: BP 105/79; PULSE 97; RESP 18; O2SAT 91
[2025-05-14 23:29] LABS: Glucose Urine UA Negative (Normal); Nitrate Urine Negative (Negative); Specific Gravity, Urine 1.003 (1.005-1.030)
[2025-05-14 23:34] LABS: Add Urine Microscopic? YES
[2025-05-14 23:36] LABS: PCP Screen Urine Negative (Negative)
== END 2025-05-14 23:40 | disposition short-term general hospital (02) ==
PROVIDERS: Emergency Medicine; Emergency Provider Student in an Organized Health Care Education/Training Program; PCP Family Medicine
DX: C79.31 Secondary malignant neoplasm of brain (principal); R56.9 Unspecified convulsions; C34.91 Malignant neoplasm of unspecified part of right bronchus or lung; F17.290 Nicotine dependence, other tobacco product, uncomplicated; F17.210 Nicotine dependence, cigarettes, uncomplicated
CPT/HCPCS: 36415; 36416; 70450; 80053; 80306; 81001; 82962; 85025; 85610; 85730; 93005; 96374; 96375; 99285; 99291; J1100; J1953; J7030